=== PATIENT | female | born 1995 | race African-American/Black ===

== ENCOUNTER 2020-06-11 15:40 | Emergency (ER) | payer SELFPAY ==
[~2020-06-11] VITALS: Ht 175.3 cm; Wt 59.0 kg
[2020-06-11 15:52] VITALS: BP 123/79
== END 2020-06-11 18:52 | disposition left against medical advice (07) ==
LOC: ER 15:40 → EDBD 15:40 → ER 18:52
DX: M25.552 Pain in left hip (principal); M25.532 Pain in left wrist; Z53.21 Procedure and treatment not carried out due to patient leaving prior to being seen by health care provider

== ENCOUNTER 2020-12-28 17:46 | Emergency (ER) | payer SELFPAY ==
[~2020-12-28] VITALS: Ht 162.6 cm; Wt 54.4 kg
[2020-12-28] MEDS ORDERED: SODIUM CHLORIDE 0.9% 1,000 ML IV ONE ×3 (18:15→20:00)
[2020-12-28 18:53] LABS: Basophils # (auto) 0 10 ^3/uL (0-0.2); Basophils % (auto) 0.4 % (0.0-2.0); Eosinophils # (auto) 0.2 10 ^3/uL (0-0.8); Hematocrit 41.2 % (36.0-46.0); Lymphocytes # (auto) 1.6 10 ^3/uL (0.4-5.4); Lymphocytes % (auto) 17.3 % (10.0-50.0); Mean Corpuscular Hgb Conc. 33.9 g/dL (32.0-36.0); Mean Corpuscular Volume 97.3 fL (80.0-100.0); Monocytes # (auto) 0.5 10 ^3/uL (0-1.3); Monocytes % (auto) 5.2 % (0.0-12.0); Neutrophils # (auto) 6.7 10 ^3/uL (1.6-8.6); Neutrophils % (auto) 75.1 % (37.0-80.0); Nucleated Red Blood Cells % 0.1 %; Platelet Count (auto) 205 10^3/uL (140-450); Red Blood Cells 4.23 10^6/uL (4.0-5.20); Red Cell Distribution Width 14.3 % (11.8-14.3)
[2020-12-28 19:11] LABS: Potassium 3.4 mmol/L (3.5-5.1)
[2020-12-28 19:14] LABS: Acetaminophen < 2.0 ug/mL (10-30); Salicylate < 1.7 mg/dL (2.8-20.0)
[2020-12-28 19:15] LABS: Albumin 3.6 g/dL (3.4-5.0); BUN/Creatinine Ratio 11.8; Calcium 8.3 mg/dL (8.5-10.1)
[2020-12-28 19:18] LABS: Bilirubin, Total 0.4 mg/dL (0.2-1.0); Total Protein 6.9 g/dL (6.4-8.2)
[2020-12-28 22:00] VITALS: BP 113/69
== END 2020-12-28 22:55 | disposition home or self-care (01) ==
LOC: ER 17:46 → EDBD 17:46 → ER 22:55
DX: T40.602A Poisoning by unspecified narcotics, intentional self-harm, initial encounter (principal); I46.9 Cardiac arrest, cause unspecified; Y92.89 Other specified places as the place of occurrence of the external cause; M62.82 Rhabdomyolysis; Z04.6 Encounter for general psychiatric examination, requested by authority; Z20.822 Contact with and (suspected) exposure to COVID-19
CPT/HCPCS: 36415; 71045; 80053; 80307; 80320; 80329; 81001; 82550; 84484; 84702; 85025; 87426; 93005; 96360; 96361

== ENCOUNTER 2021-05-28 22:52 | Emergency (ER) | payer SELFPAY ==
[~2021-05-28] VITALS: Ht 172.7 cm; Wt 59.0 kg
[2021-05-28 22:55] VITALS: BP 128/75
== END 2021-05-29 00:27 | disposition left against medical advice (07) ==
LOC: EDBD 22:52 → ER 22:54
DX: R52 Pain, unspecified (principal); Z53.21 Procedure and treatment not carried out due to patient leaving prior to being seen by health care provider

== ENCOUNTER 2021-06-27 03:13 | Emergency (ER) | payer SELFPAY ==
[~2021-06-27] VITALS: Ht 172.7 cm; Wt 56.7 kg
[2021-06-27] MEDS ORDERED: NALOXONE HCL 1MG/ML 2ML SYRINGE IV ONE (03:30)
[2021-06-27 03:51] LABS: Basophils # (auto) 0 10 ^3/uL (0-0.2); Eosinophils # (auto) 0.1 10 ^3/uL (0-0.8); Neutrophils # (auto) 2.2 10 ^3/uL (1.6-8.6)
[2021-06-27 03:53] LABS: Basophils % (auto) 0.7 % (0.0-2.0); Eosinophils % (auto) 1.7 % (0.0-7.0); Hemoglobin 12.7 g/dL (12.2-16.2); Lymphocytes # (auto) 2.1 10 ^3/uL (0.4-5.4); Lymphocytes % (auto) 43.9 % (10.0-50.0); Mean Corpuscular Hemoglobin 34.9 pg (28.0-32.0); Mean Corpuscular Hgb Conc. 34.4 g/dL (32.0-36.0); Mean Corpuscular Volume 101.5 fL (80.0-100.0); Monocytes # (auto) 0.3 10 ^3/uL (0-1.3); Neutrophils % (auto) 46.7 % (37.0-80.0); Nucleated Red Blood Cells % 0.1 %; Red Blood Cells 3.64 10^6/uL (4.0-5.20); White Blood Cell 4.7 10^3/uL (4.4-10.8)
[2021-06-27 04:07] LABS: Albumin 3.5 g/dL (3.4-5.0); Anion Gap 8 (5-15); Blood Urea Nitrogen 14 mg/dL (7-18); Carbon Dioxide 26 mmol/L (21-32); Chloride 107 mmol/L (98-107); Glucose 227 mg/dL (74-106); Magnesium 2.1 mg/dL (1.6-2.6); Potassium 3.3 mmol/L (3.5-5.1); Sodium 141 mmol/L (136-145)
[2021-06-27 04:12] LABS: Alanine Aminotransferase 22 U/L (13-56); Alkaline Phosphatase 73 U/L (45-117); Aspartate Aminotransferase 20 U/L (15-37); Bilirubin, Total 0.4 mg/dL (0.2-1.0); Blood Alcohol < 3.0 mg/dL (0-5); GFR African American 59 mL/min; GFR Non-African American 49 mL/min; Total Protein 6.6 g/dL (6.4-8.2)
[2021-06-27 04:29] LABS: Acetaminophen < 2.0 ug/mL (10-30); Salicylate < 1.7 mg/dL (2.8-20.0)
[2021-06-27 08:37] VITALS: BP 124/81
== END 2021-06-27 09:57 | disposition home or self-care (01) ==
LOC: ER 03:13
DX: T40.2X1A Poisoning by other opioids, accidental (unintentional), initial encounter (principal); F41.9 Anxiety disorder, unspecified; Y92.89 Other specified places as the place of occurrence of the external cause
CPT/HCPCS: 36415; 80053; 80320; 80329; 83735; 85025; 96374; 99285; J2310